=== PATIENT | male | born 1975 | race African-American/Black ===

== ENCOUNTER 2017-07-02 18:50 | Emergency (ER) | payer SELFPAY ==
[~2017-07-02] VITALS: Ht 175.3 cm; Wt 95.4 kg
[~2017-07-02 18:50] MED LIST: 12HOUR DECONGE120 MG PO; AMOXICILLIN500 MG OR; BACTRIM DS1 TAB PO; DENIES CURRENT MEDS; LORTAB 5 OR; LORTAB5 PO; NO HOME MEDS
[2017-07-02 20:08] LABS: INFLUENZA A NONE DETECTED (NONE DETECT); INFLUENZA B NONE DETECTED (NONE DETECT)
[2017-07-02] MEDS ORDERED: ZITHROMAX250 MG PO (20:14)
[2017-07-02] MEDS ORDERED: AFRIN 12 HOUR0.05 % (20:14)
[2017-07-02] MEDS ORDERED: TYLENOL # 31 TA1 PO (20:14)
[2017-07-02 20:15] VITALS: BP 140/82
== END 2017-07-02 20:20 | disposition home or self-care (01) | DRG 153 ==
LOC: ED 18:50
PROVIDERS: Emergency Medicine
DX: J06.9 Acute upper respiratory infection, unspecified (principal); B34.9 Viral infection, unspecified; R09.81 Nasal congestion; R05 Cough; R50.9 Fever, unspecified; J34.89 Other specified disorders of nose and nasal sinuses

== ENCOUNTER 2020-02-20 05:00 | Emergency (ER) | payer SELFPAY ==
[~2020-02-20] VITALS: Ht 177.8 cm; Wt 97.6 kg
[~2020-02-20 05:00] MED LIST changes: +AFRIN 12 HOUR0.05 %; +TYLENOL # 31 TA1 PO; +ZITHROMAX250 MG PO
[2020-02-20] MEDS ORDERED: CORTISPORIN OTI10 M2 AD (05:24)
[2020-02-20] MEDS ORDERED: ALLEGRA-D 2424 HOUR PO (05:24)
[2020-02-20 06:08] VITALS: BP 132/80
== END 2020-02-20 06:10 | disposition home or self-care (01) | DRG 156 ==
LOC: ED 05:00
DX: H60.91 Unspecified otitis externa, right ear (principal); H69.83 Other specified disorders of Eustachian tube, bilateral; H83.8X3 Other specified diseases of inner ear, bilateral

== ENCOUNTER 2021-07-27 22:56 | Emergency (ER) | payer SELFPAY ==
[~2021-07-27] VITALS: Ht 177.8 cm; Wt 95.5 kg
[~2021-07-27 22:56] MED LIST changes: +ALLEGRA-D 2424 HOUR PO; +CORTISPORIN OTI10 M2 AD
[2021-07-28 01:10] VITALS: BP 148/82
== END 2021-07-28 01:15 | disposition home or self-care (01) | DRG 153 ==
LOC: ED 22:56
DX: J06.9 Acute upper respiratory infection, unspecified (principal); Z20.822 Contact with and (suspected) exposure to COVID-19

== ENCOUNTER 2021-08-08 21:14 | Emergency (ER) | payer SELFPAY ==
[~2021-08-08] VITALS: Ht 177.8 cm; Wt 100.0 kg
[2021-08-08] MEDS ORDERED: ZPAK PO (23:01)
[2021-08-08] MEDS ORDERED: TESSALON PERLE100 MG PO (23:01)
[2021-08-08 23:46] VITALS: BP 134/82
== END 2021-08-08 23:55 | disposition home or self-care (01) | DRG 179 ==
LOC: ED 21:14
DX: U07.1 COVID-19 (principal); J40 Bronchitis, not specified as acute or chronic

== ENCOUNTER 2023-07-19 06:51 | Emergency (ER) | payer SELFPAY ==
[~2023-07-19] VITALS: Ht 177.8 cm; Wt 80.0 kg
[~2023-07-19 06:51] MED LIST changes: +KEFLEX500 MG PO; +TESSALON PERLE100 MG PO; +ZPAK PO
[2023-07-19] MEDS ORDERED: TAM75CAP PO (08:10)
[2023-07-19] MEDS ORDERED: MOTRIN800 MG PO (08:10)
[2023-07-19 08:13] VITALS: BP 133/87
== END 2023-07-19 08:18 | disposition home or self-care (01) | DRG 195 ==
LOC: ED 06:51
DX: J10.1 Influenza due to other identified influenza virus with other respiratory manifestations (principal)